=== PATIENT | male | born 1955 | race Caucasian/White ===

== ENCOUNTER 2018-01-24 18:31 | Emergency (ER) | payer MEDICARE, MEDICAID ==
[~2018-01-24 18:31] MED LIST: Ondansetron 4 MG Tab.DIS PO ONE; Sodium Chloride 0.9% 10 ML Syringe FLUSH PRN; fentaNYL 100 MCG/2 ML SDV IVPUSH ONE
[2018-01-24 18:34] VITALS: BP 119/63
--- NOTE | 2018-01-24 19:28 | EDM.PDOC ---
"Scribed by Mary Mckinney 01/24/18 1926 for Bean Castro MD ED HPI GENERAL MEDICAL PROBLEM - General Chief Complaint: Lower Extremity Injury/Pain Stated Complaint: POSS FX HIP,BY AMBULANCE Time Seen by Provider: 01/24/18 18:05 Source of Information: Reports: Patient, RN, RN Notes Reviewed History Limitations: Reports: No Limitations - History of Present Illness INITIAL COMMENTS - FREE TEXT/NARRATIVE: Patient presents to ER by [facility] with complaint of severe right hip and bony pelvis pain sustained prior to arrival from a ground level fall. Patient has MS and has balance and gait difficulties and primarily uses wheelchair for mobility. Patient also complains of neck pain, displays full range of motion. Denies any other injuries. Onset: Today Duration: Constant Location: Reports: Upper Extremity, Right Quality: Reports: Ache Severity: Severe Improves with: Reports: None Worsens with: Reports: None Associated Symptoms: Reports: No Other Symptoms Right Hip Pain Score (Numeric/FACES): 8 - Related Data Allergies Allergy/AdvReac Type Severity Reaction Status Date / Time aspirin Allergy Cough Verified 04/25/15 16:32 ketorolac tromethamine Allergy Anaphylactic Verified 04/25/15 16:32 [From Toradol] Shock Home Meds: Home Meds Acetaminophen [Tylenol] 650 mg PO DAILY 04/25/15 [History] Social & Family History - Living Situation & Occupation Living situation: Reports: Alone Occupation: Disabled Review of Systems - Review of Systems Review Of Systems: ROS reveals no pertinent complaints other than HPI. ED EXAM, GENERAL - Physical Exam Exam: See Below Exam Limited By: No Limitations General Appearance: Alert, Anxious, Mild Distress (due to pain), Obese, Other ( chronically ill appearing. ) Eye Exam: Bilateral Eye: Normal Inspection Ears: Hearing Grossly Normal Nose: Normal Inspection, Normal Mucosa, No Blood Throat/Mouth: Normal Voice, No Airway Compromise Head: Atraumatic, Normocephalic Neck: Full Range of Motion, Other (paraspinal soft tissue swelling, no bony tenderness. ) Respiratory/Chest: No Respiratory Distress, No Accessory Muscle Use, Decreased Breath Sounds Cardiovascular: Regular Rate, Rhythm GI/Abdominal: Pelvis Stable, Other (benign obese) (Male) Exam: Deferred Rectal (Males) Exam: Deferred Extremities: Pedal Edema (chronic stable), Limited Range of Motion (right hip), Other (acutely tender to palpation at right lateral hip and right anterior bony pelvis.) Neurological: Alert, Oriented, Sensory/Motor Deficit (chronic secondary to MS. No acute deficits) Psychiatric: Anxious Skin Exam: Warm, Dry, Intact Course - Vital Signs Last Recorded V/S: Last Vital Signs Temp 36.4 C 01/24/18 18:32 Pulse 84 01/24/18 18:32 Resp 16 01/24/18 18:32 BP 119/63 01/24/18 18:32 Pulse Ox 97 01/24/18 18:32 - Orders/Labs/Meds Orders: Active Orders 24 hr Category Date Time Status Peripheral IV Care [RC] . DIRECTED Care 01/24/18 18:10 Active Cervical Spine wo Cont [CT] Stat Exams 01/24/18 18:11 Taken Pelvis wo Cont [CT] Stat Exams 01/24/18 18:09 Taken COMPREHENSIVE METABOLIC PN,CMP [CHEM] Stat Lab 01/24/18 19:14 Received UA W/MICROSCOPIC [URIN] Stat Lab 01/24/18 19:06 Ordered Sodium Chloride 0.9% [Saline Flush] Med 01/24/18 18:09 Active 10 ml FLUSH ASDIRECTED PRN Peripheral IV Insertion Adult [OM.PC] Stat Oth 01/24/18 18:09 Ordered Medication Orders Sodium Chloride (Saline Flush) 10 ml FLUSH ASDIRECTED PRN PRN Reason: Keep Vein Open Last Admin: 01/24/18 18:27 Dose: 10 ml Labs: Laboratory Tests 01/24/18 Range/Units 19:14 WBC 13.0 H (5.0-10.0) 10^3/uL RBC 4.77 (4.6-6.2) 10^6/uL Hgb 14.4 (14.0-18.0) g/dL Hct 43.4 (40.0-54.0) % MCV 91.0 (80-100) fL MCH 30.2 (27.0-34.0) pg MCHC 33.2 (33.0-35.0) g/dL Plt Count 214 (150-450) 10^3/uL Neut % (Auto) 84.2 H (42.2-75.2) % Lymph % (Auto) 7.7 L (20.5-50.1) % [place] % (Auto) 5.1 (2-8) % Eos % (Auto) 2.8 (1.0-3.0) % Baso % (Auto) 0.2 (0.0-1.0) % Meds: Medications Generic Name Dose Route Start Last Admin Trade Name Freq PRN Reason Stop Dose Admin Sodium Chloride 10 ml 01/24/18 18:09 01/24/18 18:27 Saline Flush FLUSH 10 ml ASDIRECTED PRN Administration Keep Vein Open Discontinued Medications Generic Name Dose Route Start Last Admin Trade Name Freq PRN Reason Stop Dose Admin Fentanyl 50 mcg 01/24/18 18:11 01/24/18 18:27 Sublimaze IVPUSH 01/24/18 18:12 50 mcg ONETIME ONE Administration Ondansetron HCl 4 mg 01/24/18 18:11 01/24/18 18:27 Zofran Odt PO 01/24/18 18:12 4 mg ONETIME ONE Administration - Radiology Interpretation Free Text/Narrative:: CT C-spine: EXAM: CT Cervical Spine Without Intravenous Contrast CLINICAL HISTORY: 62 years old, male; Injury or trauma; Fall; Initial encounter; Blunt trauma; Patient HX: Fell today. Neck pain and right hip pain. TECHNIQUE: Axial computed tomography images of the cervical spine without intravenous contrast. All CT scans at this facility use one or more dose reduction techniques, viz.: automated exposure control; ma/kV adjustment per patient size (including targeted exams where dose is matched to indication; i.e. head); or iterative reconstruction technique. Coronal and sagittal reformatted images were created and reviewed. COMPARISON: No relevant prior studies available. FINDINGS: Vertebrae: Prominent posterior fusion of spinous processes throughout the mid to lower cervical spine. No acute fracture. Discs/spinal canal/neural foramina: No acute findings. Soft tissues: Unremarkable. Mastoid air cells: There is fluid throughout the left mastoid air cells Lung apices: Unremarkable as visualized. IMPRESSION: No acute findings. Thank you for allowing us to participate in the care of your patient. LUKE PRADHAN | Final Radiology Report CONFIDENTIALITY STATEMENT This report is intended only for use by the referring physician, and only in accordance with law. If you received this in error, call [phone]. Page 2 of 2 Dictated and Authenticated by: Berlin Sorenson MD 01/24/2018 7:16 PM Central Time ([place] & [place]) CT pelvis/hip: EXAM: CT Pelvis Without Intravenous Contrast CLINICAL HISTORY: 62 years old, male; Injury or trauma; Fall; Initial encounter; Blunt trauma ( contusions or hematomas); Right; Hip; Patient HX: Fell today. Neck pain and right hip pain. TECHNIQUE: Axial computed tomography images of the pelvis without intravenous contrast. All CT scans at this facility use one or more dose reduction techniques, viz.: automated exposure control; ma/kV adjustment per patient size (including targeted exams where dose is matched to indication; i.e. head); or iterative reconstruction technique. Coronal and sagittal reformatted images were created and reviewed. COMPARISON: No relevant prior studies available. FINDINGS: Bones/joints: There is a comminuted fracture through the right iliac bone extending into the anterior and posterior acetabulum. No dislocation. Soft tissues: Unremarkable. Bladder: Unremarkable. No stones. IMPRESSION: Extensive comminuted right iliac fracture with extensive acetabular component Thank you for allowing us to participate in the care of your patient. Dictated and Authenticated by: Berlin Sorenson MD KINZLER, FRANCIS | Final Radiology Report CONFIDENTIALITY STATEMENT This report is intended only for use by the referring physician, and only in accordance with law. If you received this in error, call [phone]. Page 2 of 2 01/24/2018 7:18 PM Central Time ([place] & [place]) CT Results Date: 01/24/18 - Re-Assessments/Exams Free Text/Narrative Re-Assessment/Exam: 01/24/18 19:[address] Morel via [employer], and he advises the pt may be transferred to an accepting hospitalist and he will consult on the case in the morning. Departure - Departure Time of Disposition: 19:24 Disposition: DC/Tfer to Acute Hospital 02 Condition: Fair Clinical Impression: Closed right acetabular fracture Qualifiers: Encounter type: initial encounter Sublocation of acetabulum: unspecified portion of acetabulum Fracture alignment: displaced Qualified Code(s): S32.401A - Unspecified fracture of right acetabulum, initial encounter for closed fracture Fall as cause of accidental injury at home as place of occurrence Qualifiers: Encounter type: initial encounter Qualified Code(s): W19.XXXA - Unspecified fall, initial encounter; Y92.009 - Unspecified place in unspecified non- institutional (private) residence as the place of occurrence of the external cause - Discharge Information Forms: ED Department Discharge, Interfacility Transfer EMTALA - My Orders Last 24 Hours: My Active Orders 01/24/18 18:09 Pelvis wo Cont [CT] Stat Sodium Chloride 0.9% [Saline Flush] 10 ml FLUSH ASDIRECTED PRN Peripheral IV Insertion Adult [OM.PC] Stat 01/24/18 18:10 Peripheral IV Care [RC] . DIRECTED 01/24/18 18:11 Cervical Spine wo Cont [CT] Stat 01/24/18 19:06 UA W/MICROSCOPIC [URIN] Stat 01/24/18 19:14 COMPREHENSIVE METABOLIC PN,CMP [CHEM] Stat - Assessment/Plan Last 24 Hours: My Active Orders 01/24/18 18:09 Pelvis wo Cont [CT] Stat Sodium Chloride 0.9% [Saline Flush] 10 ml FLUSH ASDIRECTED PRN Peripheral IV Insertion Adult [OM.PC] Stat 01/24/18 18:10 Peripheral IV Care [RC] . DIRECTED 01/24/18 18:11 Cervical Spine wo Cont [CT] Stat 01/24/18 19:06 UA W/MICROSCOPIC [URIN] Stat 01/24/18 19:14 COMPREHENSIVE METABOLIC PN,CMP [CHEM] Stat I have read and agree with the documentation that has been completed regarding this visit. By signing this record, I attest that the documentation was completed in my physical presence and is an accurate record of the encounter."
[2018-01-24 19:45] LABS: CHLORIDE,CL 103 mmol/L (101-111); SODIUM,NA 138 mmol/L (135-145)
== END 2018-01-24 20:24 ==
LOC: DL.ED 18:31
DX: S32.401A Unspecified fracture of right acetabulum, initial encounter for closed fracture (principal); S32.301A Unspecified fracture of right ilium, initial encounter for closed fracture; Z88.6 Allergy status to analgesic agent; Z79.899 Other long term (current) drug therapy; W19.XXXA Unspecified fall, initial encounter
CPT/HCPCS: 36415; 72125; 72192; 80053; 85025; 96374; 99285; A9270; J3010; J7050

== ENCOUNTER 2019-12-03 19:27 | Observation (INO) | payer MEDICARE, MEDICAID ==
--- NOTE | 2019-12-03 19:39 | EDM.PDOC ---
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 EMS arrived pt didn't fall but lowered himself down and helped pt onto gurney. Right Knee Pain Score (Numeric/FACES): 4 - Related Data Allergies Allergy/AdvReac Type Severity Reaction Status Date / Time aspirin Allergy Cough Verified 01/24/18 20:06 ketorolac tromethamine Allergy Anaphylactic Verified 01/24/18 20:06 [From Toradol] Shock Home Meds: Home Meds Acetaminophen [Tylenol] 650 mg PO DAILY 04/25/15 [History] Past Medical History Neurological History: Reports: MS Dermatologic History: Reports: Psoriasis Social & Family History - Living Situation & Occupation Living situation: Reports: Alone Occupation: Disabled Review of Systems - Review of Systems Review Of Systems: Comprehensive ROS is negative, except as noted in HPI. ED EXAM, GENERAL - Physical Exam Exam: See Below Exam Limited By: No Limitations General Appearance: Alert, WD/WN, Mild Distress, Other (discomfort) Ears: Hearing Grossly Normal Throat/Mouth: Normal Voice, No Airway Compromise Head: Atraumatic Neck: Non-Tender, Full Range of Motion Respiratory/Chest: No Respiratory Distress Cardiovascular: Regular Rate, Rhythm GI/Abdominal: Soft, Non-Tender Extremities: Other (right knee tender R/P, ) Neurological: Alert, Oriented, Normal Cognition, Other (MS pt) Psychiatric: Flat Affect Skin Exam: Warm, Dry, Normal Color Lymphatic: No Adenopathy Course - Vital Signs Last Recorded V/S: Last Vital Signs Temp 36.3 C 12/03/19 19:27 Pulse 69 12/03/19 19:27 Resp 18 12/03/19 19:27 BP 112/66 12/03/19 19:27 Pulse Ox 98 12/03/19 19:27 - Orders/Labs/Meds Meds: Medications Discontinued Medications Generic Name Dose Route Start Last Admin Trade Name Freq PRN Reason Stop Dose Admin Morphine Sulfate 2 mg 12/03/19 19:58 12/03/19 20:11 Morphine IVPUSH 12/03/19 19:59 2 mg ONETIME ONE Administration Ondansetron HCl 4 mg 12/03/19 19:58 12/03/19 20:10 Zofran IVPUSH 12/03/19 19:59 4 mg ONETIME ONE Administration - Re-Assessments/Exams Free Text/Narrative Re-Assessment/Exam: 12/03/19 20:[address] Adriel PLATA ortho who rec knee immobilizer for non weight bearing MS pt. 12/03/19 20:[address] Nova who kindly admitted pt to observation Departure - Departure Time of Disposition: 20:14 Disposition: Refer to Observation Condition: Good Clinical Impression: Femoral shaft fracture Qualifiers: Encounter type: initial encounter Fracture type: closed Fracture morphology: transverse Fracture alignment: nondisplaced Laterality: right Qualified Code(s) : S72.324A - Nondisplaced transverse fracture of shaft of right femur, initial encounter for closed fracture - Discharge Information Forms: ED Department Discharge Sepsis Event Note - Evaluation Sepsis Screening Result: No Definite Risk - Focused Exam Vital Signs: Vital Signs Temp Pulse Resp BP Pulse Ox 12/03/19 19:27 36.3 C 69 18 112/66 98 Date Exam was Performed: 12/03/19 Time Exam was Performed: 20:14
[2019-12-03] MEDS ORDERED: Ondansetron 4 MG/2 ML SDV IVPUSH ONE (19:58)
[2019-12-03] MEDS ORDERED: Morphine 2 MG/ML SYRINGE IVPUSH ONE (19:58)
[2019-12-03] MEDS ORDERED: Docusate Sodium 100 MG Cap PO PRN (20:57)
[2019-12-03] MEDS ORDERED: Ondansetron 4 MG/2 ML SDV IVPUSH PRN (20:57)
[2019-12-03] MEDS ORDERED: Ondansetron 4 MG Tab.DIS PO PRN (20:57)
[2019-12-03] MEDS ORDERED: Sodium Chloride 0.9% 10 ML Syringe FLUSH PRN (20:57)
[2019-12-03] MEDS ORDERED: Acetaminophen 325 MG Tab PO PRN (20:57)
--- NOTE | 2019-12-03 21:07 | PCM.HP ---
H&P History of Present Illness - General Date of Service: 12/03/19 Admit Problem/Dx: Admission Diagnosis/Problem Admission Diagnosis/Problem Fracture of femur Source of Information: Patient History Limitations: Reports: No Limitations - History of Present Illness Initial Comments - Free Text/Narative: 64-year-old with a history of MS. Mostly wheelchair bound. Was standing up to urinate when to lower himself onto his leg. Subsequently was a developing Right knee area pain. Sharp, nonradiating, worse with movements, better with immobilization. Came to the emergency room. X-ray showed a distal right femur fracture, Emergency room physician discussed with orthopedics at [facility]. Conservative management with immobilizer was suggested. No shortness of breath, no chest pain, no fever, no sick contact. Right Knee Pain Score (Numeric/FACES): 4 - Related Data Allergies/Adverse Reactions: Allergies Allergy/AdvReac Type Severity Reaction Status Date / Time aspirin Allergy Cough Verified 12/03/19 20:29 ketorolac tromethamine Allergy Anaphylactic Verified 12/03/19 20:29 [From Toradol] Shock Home Medications: Home Meds Acetaminophen [Tylenol] 650 mg PO BID 04/25/15 [History] Past Medical History Musculoskeletal History: Reports: Fracture Neurological History: Reports: MS Dermatologic History: Reports: Psoriasis Social & Family History - Tobacco Use Smoking Status *Q: Never Smoker Second Hand Smoke Exposure: No - Recreational Drug Use Recreational Drug Use: No - Living Situation & Occupation Living situation: Reports: Alone Occupation: Disabled H&P Review of Systems - Review of Systems: Review Of Systems: See Below General: Denies: Fever, Chills Pulmonary: Denies: Shortness of Breath Cardiovascular: Reports: Edema. Denies: Chest Pain Gastrointestinal: Denies: Abdominal Pain (Chronic) Neurological: Denies: Confusion Exam - Exam Exam: See Below - Vital Signs Vital Signs: Last Vital Signs Temp 97.4 F 12/03/19 19:27 Pulse 69 12/03/19 19:27 Resp 18 12/03/19 19:27 BP 112/66 12/03/19 19:27 Pulse Ox 98 12/03/19 19:27 Weight: 220 lb 14.4 oz - Exam General: Alert, Oriented Neck: Supple Lungs: Clear to Auscultation, Normal Respiratory Effort Cardiovascular: Regular Rate, Regular Rhythm GI/Abdominal Exam: Normal Bowel Sounds, Soft, Non-Tender Extremities: Pedal Edema Skin: Warm, Other (Groin area fungal appearing erythematous rash, elbows with rash) - Problem List (1) Yeast infection of the skin SNOMED Code(s): 74465606 ICD Code: B37.2 - CANDIDIASIS OF SKIN AND NAIL Status: Acute Current Visit: Yes (2) Multiple sclerosis SNOMED Code(s): 00034039 ICD Code: G35 - MULTIPLE SCLEROSIS Status: Acute Current Visit: Yes (3) Psoriasis SNOMED Code(s): 0713071 ICD Code: L40.9 - PSORIASIS, UNSPECIFIED Status: Acute Current Visit: Yes (4) Femoral shaft fracture SNOMED Code(s): 15530725 ICD Code: S72.309A - UNSP FRACTURE OF SHAFT OF UNSP FEMUR, INIT FOR CLOS FX Status: Acute Current Visit: No Qualifiers: Encounter type: initial encounter Fracture type: closed Fracture morphology: transverse Fracture alignment: nondisplaced Laterality: right Qualified Code(s): S72.324A - Nondisplaced transverse fracture of shaft of right femur, initial encounter for closed fracture Problem List Initiated/Reviewed/Updated: Yes Orders Last 24hrs: Active Orders 24 hr Category Date Time Status Admission Diagnosis [ADT] Stat ADT 12/03/19 20:15 Ordered Admission Status [Patient Status] [ADT] Routine ADT 12/03/19 20:15 Active Ambulate [RC] PER UNIT ROUTINE Care 12/03/19 20:58 Ordered Antiembolic Devices [RC] PER UNIT ROUTINE Care 12/03/19 21:00 Ordered Oxygen Therapy [RC] PRN Care 12/03/19 20:57 Ordered Peripheral IV Care [RC] . DIRECTED Care 12/03/19 21:00 Ordered Up With Assistance [RC] ASDIRECTED Care 12/03/19 20:57 Ordered VTE/DVT Education [RC] PER UNIT ROUTINE Care 12/03/19 20:57 Ordered Vital Signs [RC] Q4H Care 12/03/19 20:57 Ordered OT Evaluation and Treatment [CONS] Routine Cons 12/03/19 21:01 Ordered PT Evaluation and Treatment [CONS] Routine Cons 12/03/19 21:01 Ordered Regular Diet [DIET] Diet 12/03/19 Breakfast Ordered Acetaminophen [Tylenol] Med 12/03/19 21:00 Ordered 650 mg PO BID Acetaminophen [Tylenol] Med 12/03/19 20:57 Ordered 650 mg PO Q4H PRN Acetaminophen/HYDROcodone [[place] 325-10 MG] Med 12/03/19 20:57 Ordered 1 tab PO Q4H PRN Docusate Sodium [Colace] Med 12/03/19 20:57 Ordered 100 mg PO BID PRN Heparin Sodium Med 12/03/19 22:00 Ordered 5,000 units SUBCUT Q8HR Morphine Med 12/03/19 20:57 Ordered 1 mg IVPUSH Q2H PRN Nystatin [Nystatin Crm] Med 12/04/19 09:00 Ordered 1 gm TOP TID Ondansetron [Zofran ODT] Med 12/03/19 20:57 Ordered 4 mg PO Q6H PRN Ondansetron [Zofran] Med 12/03/19 20:57 Ordered 4 mg IVPUSH Q4H PRN Sodium Chloride 0.9% [Saline Flush] Med 12/03/19 20:57 Ordered 10 ml FLUSH ASDIRECTED PRN Zolpidem [Ambien] Med 12/03/19 20:57 Ordered 5 mg PO BEDTIME PRN Peripheral IV Insertion Adult [OM.PC] Routine Oth 12/03/19 20:57 Ordered Saline Lock Insert [OM.PC] Routine Oth 12/03/19 20:57 Ordered Sequential Compression Device [OM.PC] Per Unit Routine Oth 12/03/19 20:59 Ordered Resuscitation Status Routine Resus Stat 12/03/19 20:57 Ordered Medication Orders Acetaminophen (Tylenol) 650 mg PO BID CASI Acetaminophen (Tylenol) 650 mg PO Q4H PRN PRN Reason: Pain (Mild 1-3)/fever Hydrocodone Bitart/Acetaminophen ([place] 325-10 Mg) 1 tab PO Q4H PRN PRN Reason: Pain (moderate 4-6) Docusate Sodium (Colace) 100 mg PO BID PRN PRN Reason: Constipation Heparin Sodium (Porcine) (Heparin Sodium) 5,000 units SUBCUT Q8HR CASI Morphine Sulfate (Morphine) 1 mg IVPUSH Q2H PRN PRN Reason: Pain (severe 7-10) Nystatin (Nystatin Crm) 1 gm TOP TID CASI Ondansetron HCl (Zofran Odt) 4 mg PO Q6H PRN PRN Reason: nausea, able to take PO Ondansetron HCl (Zofran) 4 mg IVPUSH Q4H PRN PRN Reason: Nausea/Vomiting Sodium Chloride (Saline Flush) 10 ml FLUSH ASDIRECTED PRN PRN Reason: Keep Vein Open Zolpidem Tartrate (Ambien) 5 mg PO BEDTIME PRN PRN Reason: Sleep Assessment/Plan Comment:: History of MS, mostly wheelchair-bound. Came to the emergency room. X-ray showed a distal right femur fracture, Emergency room physician discussed with orthopedics at [facility]. Conservative management with immobilizer was suggested. Will have physical and occupational therapy evaluation Pain control with Tylenol for mild pain, hydrocodone for moderate, IV morphine for severe pain Groin yeast infection Use nystatin DVT prophylaxis with SCDs and subcutaneous heparin
[2019-12-03] MEDS: Acetaminophen 325 MG Tab PO SCH (21:36)
[2019-12-03] MEDS: Heparin Sodium 5,000 Units/ML Vial SUBCUT SCH (21:37)
[2019-12-03] MEDS: Nystatin Crm 15 GM Tube TOP SCH (21:39)
[2019-12-03] MEDS: Zolpidem 5 MG Tab PO PRN (21:43)
[2019-12-04] MEDS: Heparin Sodium 5,000 Units/ML Vial SUBCUT SCH ×4 (05:51→21:01)
[2019-12-04] MEDS: Acetaminophen 325 MG Tab PO SCH ×2 (09:12→20:49)
[2019-12-04] MEDS: Morphine 2 MG/ML SYRINGE IVPUSH PRN (09:15)
--- NOTE | 2019-12-04 10:48 | PCM.PN ---
- General Info Date of Service: 12/04/19 Subjective Update: Continues to have moderate to severe pain with activity and changing position of the right leg. Has practically no pain when not moving or touching the right leg. No associated fever, chills, shortness of breath. Functional Status: Reports: Tolerating Diet - Review of Systems Pulmonary: Denies: Shortness of Breath Cardiovascular: Denies: Chest Pain Gastrointestinal: Denies: Abdominal Pain Genitourinary: Denies: Dysuria - Patient Data Vitals - Most Recent: Last Vital Signs Temp 98.9 F 12/04/19 08:00 Pulse 48 L 12/04/19 08:00 Resp 18 12/04/19 08:00 BP 133/86 12/04/19 08:00 Pulse Ox 95 12/04/19 08:00 Weight - Most Recent: 220 lb 14.4 oz I&O - Last 24 Hours: Intake & Output 12/03/19 12/04/19 12/04/19 22:59 06:59 14:59 Intake Total 100 Output Total 200 Balance -100 Med Orders - Current: Current Medications Acetaminophen (Tylenol) 650 mg PO BID [facility] Last Admin: 12/04/19 09:12 Dose: 650 mg Acetaminophen (Tylenol) 650 mg PO Q4H PRN PRN Reason: Pain (Mild 1-3)/fever Hydrocodone Bitart/Acetaminophen ([place] 325-10 Mg) 1 tab PO Q4H PRN PRN Reason: Pain (moderate 4-6) Docusate Sodium (Colace) 100 mg PO BID PRN PRN Reason: Constipation Heparin Sodium (Porcine) (Heparin Sodium) 5,000 units SUBCUT Q8HR [facility] Last Admin: 12/04/19 05:51 Dose: 5,000 units Morphine Sulfate (Morphine) 1 mg IVPUSH Q2H PRN PRN Reason: Pain (severe 7-10) Last Admin: 12/04/19 09:15 Dose: 1 mg Nystatin (Nystatin Crm) 0 gm TOP TID [facility] Last Admin: 12/03/19 21:39 Dose: 1 applic Ondansetron HCl (Zofran Odt) 4 mg PO Q6H PRN PRN Reason: nausea, able to take PO Ondansetron HCl (Zofran) 4 mg IVPUSH Q4H PRN PRN Reason: Nausea/Vomiting Sodium Chloride (Saline Flush) 10 ml FLUSH ASDIRECTED PRN PRN Reason: Keep Vein Open Last Admin: 12/04/19 09:15 Dose: 10 ml Zolpidem Tartrate (Ambien) 5 mg PO BEDTIME PRN PRN Reason: Sleep Last Admin: 12/03/19 21:43 Dose: 5 mg Discontinued Medications Morphine Sulfate (Morphine) 2 mg IVPUSH ONETIME ONE Stop: 12/03/19 19:59 Last Admin: 12/03/19 20:11 Dose: 2 mg Ondansetron HCl (Zofran) 4 mg IVPUSH ONETIME ONE Stop: 12/03/19 19:59 Last Admin: 12/03/19 20:10 Dose: 4 mg - Exam General: Alert, Oriented Neck: Supple Lungs: Clear to Auscultation, Normal Respiratory Effort Cardiovascular: Regular Rate, Regular Rhythm GI/Abdominal Exam: Normal Bowel Sounds, Soft, Non-Tender Extremities: Pedal Edema, Other (Right lower extremity in immobilizer) Neurological: Other (Generalized weakness) Sepsis Event Note - Evaluation Sepsis Screening Result: No Definite Risk - Focused Exam Vital Signs: Vital Signs Temp Pulse Resp BP Pulse Ox 12/04/19 08:00 98.9 F 48 L 18 133/86 95 Date Exam was Performed: 12/04/19 Time Exam was Performed: 10:46 - Problem List & Annotations (1) Yeast infection of the skin SNOMED Code(s): 18261422 Code(s): B37.2 - CANDIDIASIS OF SKIN AND NAIL Status: Acute Current Visit : Yes (2) Multiple sclerosis SNOMED Code(s): 75417037 Code(s): G35 - MULTIPLE SCLEROSIS Status: Acute Current Visit: Yes (3) Psoriasis SNOMED Code(s): 4708374 Code(s): L40.9 - PSORIASIS, UNSPECIFIED Status: Acute Current Visit: Yes (4) Femoral shaft fracture SNOMED Code(s): 40030037 Code(s): S72.309A - UNSP FRACTURE OF SHAFT OF UNSP FEMUR, INIT FOR CLOS FX Status: Acute Current Visit: No Qualifiers: Encounter type: initial encounter Fracture type: closed Fracture morphology: transverse Fracture alignment: nondisplaced Laterality: right Qualified Code(s): S72.324A - Nondisplaced transverse fracture of shaft of right femur, initial encounter for closed fracture - Problem List Review Problem List Initiated/Reviewed/Updated: Yes - My Orders Last 24 Hours: My Active Orders 12/03/19 20:57 Oxygen Therapy [RC] PRN Up With Assistance [RC] ASDIRECTED VTE/DVT Education [RC] PER UNIT ROUTINE Vital Signs [RC] Q4H Acetaminophen [Tylenol] 650 mg PO Q4H PRN Acetaminophen/HYDROcodone [[place] 325-10 MG] 1 tab PO Q4H PRN Docusate Sodium [Colace] 100 mg PO BID PRN Morphine 1 mg IVPUSH Q2H PRN Ondansetron [Zofran ODT] 4 mg PO Q6H PRN Ondansetron [Zofran] 4 mg IVPUSH Q4H PRN Sodium Chloride 0.9% [Saline Flush] 10 ml FLUSH ASDIRECTED PRN Zolpidem [Ambien] 5 mg PO BEDTIME PRN Peripheral IV Insertion Adult [OM.PC] Routine Saline Lock Insert [OM.PC] Routine Resuscitation Status Routine 12/03/19 20:58 Ambulate [RC] PER UNIT ROUTINE 12/03/19 20:59 Sequential Compression Device [OM.PC] Per Unit Routine 12/03/19 21:00 Antiembolic Devices [RC] PER UNIT ROUTINE Peripheral IV Care [RC] ,21 Acetaminophen [Tylenol] 650 mg PO BID 12/03/19 21:01 OT Evaluation and Treatment [CONS] Routine PT Evaluation and Treatment [CONS] Routine 12/03/19 21:15 Nystatin [Nystatin Crm] 0 gm TOP TID 12/03/19 22:00 Heparin Sodium 5,000 units SUBCUT Q8HR 12/05/19 05:15 BASIC METABOLIC PANEL,BMP [CHEM] AM CBC WITH AUTO DIFF [HEME] AM - Plan Plan:: History of MS, mostly wheelchair-bound. Came to the emergency room. X-ray showed a distal right femur fracture, Emergency room physician discussed with orthopedics at [facility]. Conservative management with immobilizer was suggested. Continue with physical and occupational therapy evaluation and treatment Pain control with Tylenol for mild pain, hydrocodone for moderate, IV morphine for severe pain Groin yeast infection Use nystatin DVT prophylaxis with SCDs and subcutaneous heparin
[2019-12-04] MEDS: Nystatin Crm 15 GM Tube TOP SCH ×2 (11:17→14:58)
[2019-12-04] MEDS: Nystatin Topical Powder 30 GM Bottle TOP SCH (20:45)
[2019-12-04] MEDS: Zolpidem 5 MG Tab PO PRN (20:47)
[2019-12-04] MEDS: Acetaminophen/HYDROcodone 325-10 MG Tab PO PRN (20:48)
[2019-12-05] MEDS: Heparin Sodium 5,000 Units/ML Vial SUBCUT SCH ×3 (05:52→21:07)
[2019-12-05 06:55] LABS: CHLORIDE,CL 104 mmol/L (98-107); SODIUM,NA 142 mmol/L (136-145)
[2019-12-05] MEDS: Acetaminophen 325 MG Tab PO SCH ×2 (08:13→21:07)
--- NOTE | 2019-12-05 10:24 | PCM.PN ---
- General Info Date of Service: 12/05/19 Admission Dx/Problem (Free Text): Admission Diagnosis/Problem Admission Diagnosis/Problem Fracture of femur Subjective Update: Continues to have moderate to severe pain with activity and changing position of the right leg. Has practically no pain when not moving or touching the right leg.No associated fever, chills, shortness of breath. He gets spasm of the right leg and some time it is very severe Functional Status: Reports: Pain Controlled, Tolerating Diet, Urinating - Review of Systems General: Reports: Weakness, Appetite (acceptable). Denies: Fever, Chills, Night Sweats HEENT: Denies: Dysphasia, Eye Pain, Headaches, Sinus Congestion, Sore Throat, Visual Changes Pulmonary: Denies: Shortness of Breath, Cough, Sputum, Wheezing Cardiovascular: Denies: Chest Pain, Edema Gastrointestinal: Denies: Abdominal Pain, Constipation, Difficulty Swallowing, Nausea, Vomiting Genitourinary: Denies: Dysuria, Urgency, Flank Pain Musculoskeletal: Denies: Neck Pain, Shoulder Pain, Leg Pain (right), Joint Swelling Skin: Denies: Cyanosis, Jaundice, Bruising, Pruritis, Rash Neurological: Reports: Weakness. Denies: Confusion, Headache, Numbness, Tremors Psychiatric: Denies: Confusion, Anxiety, Agitation - Patient Data Vitals - Most Recent: Last Vital Signs Temp 36.6 C 12/05/19 08:00 Pulse 84 12/05/19 08:00 Resp 20 12/05/19 08:00 BP 111/68 12/05/19 08:00 Pulse Ox 95 12/05/19 08:00 Weight - Most Recent: 100.199 kg I&O - Last 24 Hours: Intake & Output 12/04/19 12/05/19 12/05/19 22:59 06:59 14:59 Intake Total 500 Output Total 675 300 Balance -175 -300 Lab Results Last 24 Hours: Laboratory Results - last 24 hr 12/05/19 12/05/19 Range/Units 05:55 05:55 WBC 8.0 (5.0-10.0) 10^3/uL RBC 4.36 L (4.6-6.2) 10^6/uL Hgb 13.0 L (14.0-18.0) g/dL Hct 40.1 (40.0-54.0) % MCV 92.0 (80-100) fL MCH 29.8 (27.0-34.0) pg MCHC 32.4 L (33.0-35.0) g/dL Plt Count 267 (150-450) 10^3/uL Neut % (Auto) 68.0 (42.2-75.2) % Lymph % (Auto) 18.3 L (20.5-50.1) % [place] % (Auto) 10.3 H (2-8) % Eos % (Auto) 3.3 H (1.0-3.0) % Baso % (Auto) 0.1 (0.0-1.0) % Sodium 142 (136-145) mmol/L Potassium 4.0 (3.5-5.1) mmol/L Chloride 104 (98-107) mmol/L Carbon Dioxide 29 (21-32) mmol/L Anion Gap 13.0 (7-13) mEq/L BUN 19 H (7-18) mg/dL Creatinine 1.05 (0.70-1.30) mg/dL Est Cr Clr Drug Dosing 93.09 mL/min Estimated GFR (MDRD) > 60 Glucose 100 H (74-99) mg/dL Calcium 8.2 L (8.5-10.1) mg/dL Med Orders - Current: Current Medications Acetaminophen (Tylenol) 650 mg PO BID [facility] Last Admin: 12/05/19 08:13 Dose: 650 mg Acetaminophen (Tylenol) 650 mg PO Q4H PRN PRN Reason: Pain (Mild 1-3)/fever Hydrocodone Bitart/Acetaminophen ([place] 325-10 Mg) 1 tab PO Q4H PRN PRN Reason: Pain (moderate 4-6) Last Admin: 12/04/19 20:48 Dose: 1 tab Cyclobenzaprine HCl (Flexeril) 5 mg PO DAILY [facility] Docusate Sodium (Colace) 100 mg PO BID PRN PRN Reason: Constipation Heparin Sodium (Porcine) (Heparin Sodium) 5,000 units SUBCUT Q8HR [facility] Last Admin: 12/05/19 05:52 Dose: 5,000 units Morphine Sulfate (Morphine) 1 mg IVPUSH Q2H PRN PRN Reason: Pain (severe 7-10) Last Admin: 12/04/19 09:15 Dose: 1 mg Nystatin (Nystop) 0 gm TOP TID [facility] Last Admin: 12/04/19 20:45 Dose: 1 applic Ondansetron HCl (Zofran Odt) 4 mg PO Q6H PRN PRN Reason: nausea, able to take PO Ondansetron HCl (Zofran) 4 mg IVPUSH Q4H PRN PRN Reason: Nausea/Vomiting Sodium Chloride (Saline Flush) 10 ml FLUSH ASDIRECTED PRN PRN Reason: Keep Vein Open Last Admin: 12/04/19 09:15 Dose: 10 ml Zolpidem Tartrate (Ambien) 5 mg PO BEDTIME PRN PRN Reason: Sleep Last Admin: 12/04/19 20:47 Dose: 5 mg Discontinued Medications Morphine Sulfate (Morphine) 2 mg IVPUSH ONETIME ONE Stop: 12/03/19 19:59 Last Admin: 12/03/19 20:11 Dose: 2 mg Nystatin (Nystatin Crm) 0 gm TOP TID [facility] Last Admin: 12/04/19 14:58 Dose: 1 applic Ondansetron HCl (Zofran) 4 mg IVPUSH ONETIME ONE Stop: 12/03/19 19:59 Last Admin: 12/03/19 20:10 Dose: 4 mg - Exam Quality Assessment: DVT Prophylaxis. No: Supplemental Oxygen, Urine Catheter General: Alert, Oriented, Cooperative, No Acute Distress HEENT: Pupils Equal, Pupils Reactive, Mucous Membr. Moist/[place] Neck: Supple, No JVD, No Thyromegaly. No: Lymphadenopathy Lungs: Clear to Auscultation, Normal Respiratory Effort. No: Crackles, Wheezing Cardiovascular: Regular Rate, Regular Rhythm, Murmurs GI/Abdominal Exam: Normal Bowel Sounds, Soft, Non-Tender. No: Rigid, Rebound (Male) Exam: Deferred Back Exam: Normal Inspection Extremities: Normal Inspection, No Pedal Edema, Leg Pain (Rt LE with touch and any movement ) Skin: Warm, Dry, Intact Neurological: Normal Speech, Sensation Intact Psy/Mental Status: Alert, Normal Affect, Normal Mood Sepsis Event Note - Evaluation Sepsis Screening Result: No Definite Risk - Focused Exam Vital Signs: Vital Signs Temp Pulse Resp BP Pulse Ox 12/05/19 08:00 36.6 C 84 20 111/68 95 Date Exam was Performed: 12/05/19 Time Exam was Performed: 10:18 - Problem List Review Problem List Initiated/Reviewed/Updated: Yes - My Orders Last 24 Hours: My Active Orders 12/04/19 21:00 Nystatin [Nystop] 0 gm TOP TID 12/06/19 09:00 Cyclobenzaprine [Flexeril] 5 mg PO DAILY - Plan Plan:: 64-year-old with a history of MS. Mostly wheelchair bound. He Was standing up to urinate when he lowered himself onto his leg, developed Right knee area sharp pain, nonradiating, worse with movements, better with immobilization. Came to the emergency room. X-ray showed a distal right femur fracture, Emergency room physician discussed with orthopedics at . Conservative management with immobilizer was suggested. No shortness of breath, no chest pain, no fever, no sick contact. Impression and Plan 1. Distal Right Femur Fracture: Continue conservative management, Continue with physical and occupational therapy evaluation and treatment Pain control with Tylenol for mild pain, hydrocodone for moderate, IV morphine for severe pain for muscle spasm will start with flexeril 5 mg daily PRN 2. Groin yeast infection Use nystatin powder 3. DVT prophylaxis with SCDs and subcutaneous heparin Disposition: Will need NH placement
[2019-12-05] MEDS: Nystatin Topical Powder 30 GM Bottle TOP SCH ×3 (11:00→21:08)
[2019-12-05] MEDS: Acetaminophen/HYDROcodone 325-10 MG Tab PO PRN (13:25)
[2019-12-05] MEDS: Zolpidem 5 MG Tab PO PRN (21:07)
[2019-12-06] MEDS: Heparin Sodium 5,000 Units/ML Vial SUBCUT SCH ×3 (05:08→21:23)
[2019-12-06] MEDS: Acetaminophen 325 MG Tab PO SCH ×2 (08:36→21:22)
[2019-12-06] MEDS: Nystatin Topical Powder 30 GM Bottle TOP SCH ×3 (08:37→21:23)
[2019-12-06] MEDS: Cyclobenzaprine 10 MG Tab PO SCH (08:37)
--- NOTE | 2019-12-06 11:46 | PCM.PN ---
- General Info Date of Service: 12/06/19 Admission Dx/Problem (Free Text): Admission Diagnosis/Problem Admission Diagnosis/Problem Fracture of femur Subjective Update: Today he was seen in room, Continues to have moderate to severe pain with activity and changing position of the right leg. Has practically no pain when not moving or touching the right leg.No associated fever, chills, shortness of breath. He gets spasm of the right leg and some time it is very severe but after staring flexeril it is much better Functional Status: Reports: Pain Controlled, Tolerating Diet - Review of Systems General: Reports: Weakness, Appetite (acceptable). Denies: Fever, Chills HEENT: Denies: Headaches, Sinus Congestion, Sore Throat, Visual Changes Pulmonary: Denies: Shortness of Breath, Cough, Sputum, Wheezing Cardiovascular: Denies: Chest Pain, Lightheadedness Gastrointestinal: Denies: Abdominal Pain, Diarrhea, Difficulty Swallowing, Nausea, Vomiting Genitourinary: Denies: Dysuria, Burning, Urgency, Flank Pain Musculoskeletal: Reports: Leg Pain (Right hip area). Denies: Neck Pain Skin: Denies: Cyanosis, Jaundice, Bruising, Pruritis, Rash Neurological: Denies: Confusion, Tingling, Tremors Psychiatric: Denies: No Symptoms - Patient Data Vitals - Most Recent: Last Vital Signs Temp 37.2 C 12/06/19 08:00 Pulse 87 12/06/19 08:00 Resp 18 12/06/19 08:00 BP 121/62 12/06/19 08:00 Pulse Ox 95 12/06/19 08:00 Weight - Most Recent: 100.199 kg I&O - Last 24 Hours: Intake & Output 12/05/19 12/06/19 12/06/19 22:59 06:59 14:59 Intake Total 460 200 460 Balance 460 200 460 Med Orders - Current: Current Medications Acetaminophen (Tylenol) 650 mg PO BID [facility] Last Admin: 12/06/19 08:36 Dose: 650 mg Acetaminophen (Tylenol) 650 mg PO Q4H PRN PRN Reason: Pain (Mild 1-3)/fever Hydrocodone Bitart/Acetaminophen ([place] 325-10 Mg) 1 tab PO Q4H PRN PRN Reason: Pain (moderate 4-6) Last Admin: 12/05/19 13:25 Dose: 1 tab Cyclobenzaprine HCl (Flexeril) 5 mg PO DAILY [facility] Last Admin: 12/06/19 08:37 Dose: 5 mg Docusate Sodium (Colace) 100 mg PO BID PRN PRN Reason: Constipation Heparin Sodium (Porcine) (Heparin Sodium) 5,000 units SUBCUT Q8HR [facility] Last Admin: 12/06/19 05:08 Dose: 5,000 units Morphine Sulfate (Morphine) 1 mg IVPUSH Q2H PRN PRN Reason: Pain (severe 7-10) Last Admin: 12/04/19 09:15 Dose: 1 mg Nystatin (Nystop) 0 gm TOP TID [facility] Last Admin: 12/06/19 08:37 Dose: 1 applic Ondansetron HCl (Zofran Odt) 4 mg PO Q6H PRN PRN Reason: nausea, able to take PO Ondansetron HCl (Zofran) 4 mg IVPUSH Q4H PRN PRN Reason: Nausea/Vomiting Sodium Chloride (Saline Flush) 10 ml FLUSH ASDIRECTED PRN PRN Reason: Keep Vein Open Last Admin: 12/04/19 09:15 Dose: 10 ml Zolpidem Tartrate (Ambien) 5 mg PO BEDTIME PRN PRN Reason: Sleep Last Admin: 12/05/19 21:07 Dose: 5 mg Discontinued Medications Morphine Sulfate (Morphine) 2 mg IVPUSH ONETIME ONE Stop: 12/03/19 19:59 Last Admin: 12/03/19 20:11 Dose: 2 mg Nystatin (Nystatin Crm) 0 gm TOP TID [facility] Last Admin: 12/04/19 14:58 Dose: 1 applic Ondansetron HCl (Zofran) 4 mg IVPUSH ONETIME ONE Stop: 12/03/19 19:59 Last Admin: 12/03/19 20:10 Dose: 4 mg - Exam Quality Assessment: DVT Prophylaxis. No: Supplemental Oxygen, Urine Catheter General: Alert, Oriented, Cooperative, No Acute Distress HEENT: Pupils Equal, EOMI, Mucous Membr. Moist/[place] Neck: Supple, No JVD, No Thyromegaly. No: Lymphadenopathy Lungs: Clear to Auscultation, Normal Respiratory Effort Cardiovascular: Regular Rate, Regular Rhythm, Murmurs GI/Abdominal Exam: Normal Bowel Sounds, Soft, Non-Tender, No Organomegaly. No: Rigid, Rebound (Male) Exam: Deferred Back Exam: Normal Inspection Extremities: Normal Inspection, No Pedal Edema Skin: Warm, Dry, Intact Neurological: No New Focal Deficit Psy/Mental Status: Alert, Normal Affect, Normal Mood Sepsis Event Note - Evaluation Sepsis Screening Result: No Definite Risk - Focused Exam Vital Signs: Vital Signs Temp Pulse Resp BP Pulse Ox 12/06/19 08:00 37.2 C 87 18 121/62 95 Date Exam was Performed: 12/06/19 Time Exam was Performed: 11:45 - Problem List Review Problem List Initiated/Reviewed/Updated: Yes - My Orders Last 24 Hours: My Active Orders 12/06/19 09:00 Cyclobenzaprine [Flexeril] 5 mg PO DAILY - Plan Plan:: 64-year-old with a history of MS. Mostly wheelchair bound. He Was standing up to urinate when he lowered himself onto his leg, developed Right knee area sharp pain, nonradiating, worse with movements, better with immobilization. Came to the emergency room. X-ray showed a distal right femur fracture, Emergency room physician discussed with orthopedics at . Conservative management with immobilizer was suggested. No shortness of breath, no chest pain, no fever, no sick contact. Impression and Plan 1. Distal Right Femur Fracture: Continue conservative management, Continue with physical and occupational therapy evaluation and treatment Pain control with Tylenol for mild pain, hydrocodone for moderate, IV morphine for severe pain for muscle spasm will continue flexeril 5 mg daily PRN and he feels better with flexeil 2. Groin yeast infection Use nystatin powder 3. DVT prophylaxis with SCDs and subcutaneous heparin Disposition: Will need NH placement
[2019-12-06] MEDS: Morphine 2 MG/ML SYRINGE IVPUSH PRN (14:14)
[2019-12-06] MEDS: Zolpidem 5 MG Tab PO PRN (21:23)
[2019-12-07] MEDS: Heparin Sodium 5,000 Units/ML Vial SUBCUT SCH (05:15)
[2019-12-07] MEDS: Nystatin Topical Powder 30 GM Bottle TOP SCH (09:00)
[2019-12-07] MEDS: Acetaminophen 325 MG Tab PO SCH (09:28)
[2019-12-07] MEDS: Cyclobenzaprine 10 MG Tab PO SCH (09:31)
--- NOTE | 2019-12-07 10:43 | PCM.DCSUM1 ---
Discharge Summary - Hospital Course Free Text/Narrative:: 64-year-old with a history of MS. Mostly wheelchair bound. He Was standing up to urinate when he lowered himself onto his leg, developed Right knee area sharp pain, nonradiating, worse with movements, better with immobilization. Came to the emergency room. X-ray showed a distal right femur fracture, Emergency room physician discussed with orthopedics at [facility]. Conservative management with immobilizer was suggested. 1. Distal Right Femur Fracture: Continue conservative management, Continue with physical and occupational therapy evaluation and treatment Pain control with Tylenol for mild pain, hydrocodone for moderate or severe pain for muscle spasm will continue flexeril 5 mg daily PRN 2. Groin yeast infection Use nystatin powder Diagnosis: Stroke: No - Discharge Data Discharge Date: 12/07/19 Discharge Disposition: DC/Tfer to SNF 03 Condition: Stable - Referral to Home Health Primary Care Physician: PCP None - Discharge Diagnosis/Problem(s) (1) Yeast infection of the skin SNOMED Code(s): 20460911 ICD Code: B37.2 - CANDIDIASIS OF SKIN AND NAIL Status: Acute Current Visit: Yes (2) Multiple sclerosis SNOMED Code(s): 57491555 ICD Code: G35 - MULTIPLE SCLEROSIS Status: Acute Current Visit: Yes (3) Psoriasis SNOMED Code(s): 3611889 ICD Code: L40.9 - PSORIASIS, UNSPECIFIED Status: Acute Current Visit: Yes (4) Femoral shaft fracture SNOMED Code(s): 79698836 ICD Code: S72.309A - UNSP FRACTURE OF SHAFT OF UNSP FEMUR, INIT FOR CLOS FX Status: Acute Current Visit: No Qualifiers: Encounter type: initial encounter Fracture type: closed Fracture morphology: transverse Fracture alignment: nondisplaced Laterality: right Qualified Code(s): S72.324A - Nondisplaced transverse fracture of shaft of right femur, initial encounter for closed fracture - Patient Summary/Data Consults: Consultations 12/03/19 21:01 OT Evaluation and Treatment [CONS] Routine PT Evaluation and Treatment [CONS] Routine - Patient Instructions Diet: Usual Diet as Tolerated Activity: As Tolerated - Discharge Plan *PRESCRIPTION DRUG MONITORING PROGRAM REVIEWED*: Not Applicable *COPY OF PRESCRIPTION DRUG MONITORING REPORT IN PATIENT TELLY: Not Applicable Prescriptions/Med Rec: Acetaminophen/HYDROcodone [[place] 325-10 MG] 1 tab PO Q4H PRN #22 tablet PRN Reason: Pain (Moderate 4-6) Cyclobenzaprine [Flexeril] 5 mg PO DAILY #30 tablet Nystatin [Nystop] 1 gm TOP TID #1 bottle Home Medications: Home Meds Acetaminophen [Tylenol] 650 mg PO BID 04/25/15 [History] Acetaminophen [Tylenol] 650 mg PO Q4H PRN tablet 12/07/19 [Rx] Acetaminophen/HYDROcodone [[place] 325-10 MG] 1 tab PO Q4H PRN #22 tablet [Rx] Cyclobenzaprine [Flexeril] 5 mg PO DAILY #30 tablet 12/07/19 [Rx] Docusate Sodium [Colace] 100 mg PO BID PRN cap 12/07/19 [Rx] Nystatin [Nystop] 1 gm TOP TID #1 bottle 12/07/19 [Rx] Oxygen Therapy Mode: Room Air Forms: ED Department Discharge Referrals: Johnnie Morel, DO [Ordering Only Provider] - (in 2 weeks) PCP,Unobtain [Ordering Only Provider] - (in 2-3 days) - Discharge Summary/Plan Comment DC Time >30 min.: No - General Info Date of Service: 12/07/19 Functional Status: Reports: Pain Controlled - Review of Systems General: Denies: Fever Pulmonary: Denies: Shortness of Breath Cardiovascular: Denies: Chest Pain, Edema - Patient Data Vitals - Most Recent: Last Vital Signs Temp 98.8 F 12/07/19 07:25 Pulse 83 12/07/19 07:25 Resp 18 12/07/19 07:25 BP 126/61 12/07/19 07:25 Pulse Ox 95 12/07/19 07:25 Weight - Most Recent: 220 lb 14.4 oz I&O - Last 24 hours: Intake & Output 12/06/19 12/07/19 12/07/19 22:59 06:59 14:59 Intake Total 240 250 Balance 240 250 Med Orders - Current: Current Medications Acetaminophen (Tylenol) 650 mg PO BID [facility] Last Admin: 12/07/19 09:28 Dose: 650 mg Acetaminophen (Tylenol) 650 mg PO Q4H PRN PRN Reason: Pain (Mild 1-3)/fever Hydrocodone Bitart/Acetaminophen ([place] 325-10 Mg) 1 tab PO Q4H PRN PRN Reason: Pain (moderate 4-6) Last Admin: 12/05/19 13:25 Dose: 1 tab Cyclobenzaprine HCl (Flexeril) 5 mg PO DAILY [facility] Last Admin: 12/07/19 09:31 Dose: 5 mg Docusate Sodium (Colace) 100 mg PO BID PRN PRN Reason: Constipation Heparin Sodium (Porcine) (Heparin Sodium) 5,000 units SUBCUT Q8HR [facility] Last Admin: 12/07/19 05:15 Dose: 5,000 units Morphine Sulfate (Morphine) 1 mg IVPUSH Q2H PRN PRN Reason: Pain (severe 7-10) Last Admin: 12/06/19 14:14 Dose: 1 mg Nystatin (Nystop) 0 gm TOP TID [facility] Last Admin: 12/06/19 21:23 Dose: 1 applic Ondansetron HCl (Zofran Odt) 4 mg PO Q6H PRN PRN Reason: nausea, able to take PO Ondansetron HCl (Zofran) 4 mg IVPUSH Q4H PRN PRN Reason: Nausea/Vomiting Sodium Chloride (Saline Flush) 10 ml FLUSH ASDIRECTED PRN PRN Reason: Keep Vein Open Last Admin: 12/04/19 09:15 Dose: 10 ml Zolpidem Tartrate (Ambien) 5 mg PO BEDTIME PRN PRN Reason: Sleep Last Admin: 12/06/19 21:23 Dose: 5 mg Discontinued Medications Morphine Sulfate (Morphine) 2 mg IVPUSH ONETIME ONE Stop: 12/03/19 19:59 Last Admin: 12/03/19 20:11 Dose: 2 mg Nystatin (Nystatin Crm) 0 gm TOP TID [facility] Last Admin: 12/04/19 14:58 Dose: 1 applic Ondansetron HCl (Zofran) 4 mg IVPUSH ONETIME ONE Stop: 12/03/19 19:59 Last Admin: 12/03/19 20:10 Dose: 4 mg - Exam General: Reports: Alert, Oriented Neck: Reports: Supple Lungs: Reports: Clear to Auscultation, Normal Respiratory Effort Cardiovascular: Reports: Regular Rate, Regular Rhythm Extremities: Normal Inspection (r. leg immobilizer), No Pedal Edema Skin: Reports: Warm, Dry, Other (psoriatic patches ) Neurological: Reports: No New Focal Deficit Psy/Mental Status: Reports: Alert, Normal Affect, Normal Mood
[2019-12-07 11:28] VITALS: BP 135/73; PULSE 94
[2019-12-07] MEDS: Acetaminophen/HYDROcodone 325-10 MG Tab PO PRN (12:55)
== END 2019-12-07 13:00 ==
LOC: DL.ED 19:27 → UNDOADMOB 20:15 → DL.MS 20:15 → UNDOADMOB 20:19 → DL.MS 20:19
PROVIDERS: ADMIT Internal Medicine; ATTEND Internal Medicine
DX: S72.324A Nondisplaced transverse fracture of shaft of right femur, initial encounter for closed fracture (principal); B37.2 Candidiasis of skin and nail; G35 Multiple sclerosis; L40.9 Psoriasis, unspecified; Z88.6 Allergy status to analgesic agent; X50.9XXA Other and unspecified overexertion or strenuous movements or postures, initial encounter
CPT/HCPCS: 36415; 73560; 80048; 85025; 96372; 96374; 96375; 96376; 99217; 99218; 99225; 99226; 99284; 99285; A9270; G0378; J1644; J2270; J2405

== ENCOUNTER 2023-06-25 15:29 | Inpatient (IN) | payer MEDICARE, MEDICAID ==
[2023-06-25] MEDS ORDERED: Albuterol/Ipratropium 3.0-0.5 MG/3 ML Neb Soln NEB ONE (15:50)
[2023-06-25] MEDS ORDERED: Dexamethasone/Tobramycin 0.1-0.3% Ophth Oint 3.5 GM Tube EYERT ONE (15:50)
[2023-06-25] MEDS ORDERED: Dexamethasone 4 MG/ML SDV IVPUSH ONE (15:51)
[2023-06-25] MEDS: Sodium Chloride 0.9% 10 ML Syringe FLUSH PRN (15:51)
[2023-06-25] MEDS ORDERED: Sodium Chloride 0.9% 1,000 ML IV ONE (15:51)
[2023-06-25] MEDS ORDERED: Cefepime 2 GM Vial IVPUSH ONE (15:52)
[2023-06-25] MEDS ORDERED: Azithromycin 500 MG in Sodium Chloride 0.9% 250 ML IV ONE (15:52)
[2023-06-25 16:12] LABS: BASOPHILS PERCENT AUTO 0.2 % (0.0-1.0); EOSINOPHILS PERCENT AUTO 0.3 % (1.0-3.0); HEMATOCRIT 40.6 % (40.0-54.0); HEMOGLOBIN 13.4 g/dL (14.0-18.0); LYMPHOCYTES PERCENT AUTO 15.2 % (20.5-50.1); MEAN CORPUSCULAR HEMOGLOBIN 27.9 pg (27.0-34.0); MEAN CORPUSCULAR VOLUME 84.4 fL (80-100); MONOCYTES PERCENT AUTO 6.9 % (2-8); NEUTROPHILS PERCENT AUTO 77.4 % (42.2-75.2); PLATELET COUNT,PLT 556 10^3/uL (150-450); RED BLOOD CELL COUNT 4.81 10^6/uL (4.6-6.2); WHITE BLOOD CELL COUNT,WBC 17.2 10^3/uL (5.0-10.0)
[2023-06-25 16:24] LABS: ALANINE AMINOTRANSFERASE,ALT 20 U/L (16-63); ALBUMIN 2.6 g/dL (3.4-5.0); ALKALINE PHOSPHATASE 79 U/L (46-116); ANION GAP 13.8 mEq/L (7-13); ASPARTATE AMNIOTRANSFERASE,AST 14 U/L (15-37); BILIRUBIN TOTAL 0.3 mg/dL (0.2-1.0); BLOOD UREA NITROGEN,BUN 20 mg/dL (7-18); BUN/CREATININE RATIO 24.1 (No establ ref range); CALCIUM 10.3 mg/dL (8.5-10.1); CARBON DIOXIDE,CO2 28 mmol/L (21-32); CHLORIDE,CL 99 mmol/L (98-107); CREATININE 0.83 mg/dL (0.70-1.30); GLUCOSE RANDOM 141 mg/dL (70-99); POTASSIUM,K 3.8 mmol/L (3.5-5.1); PROTEIN TOTAL,TP 8.3 g/dL (6.4-8.2); SODIUM,NA 137 mmol/L (136-145)
[2023-06-25] MEDS ORDERED: Gentamicin 0.3% Ophth Soln 5 ML Bottle EYERT ONE (16:24)
[2023-06-25 16:25] LABS: A/G RATIO 0.46; ESTIMATED GFR 96 mL/min (>=60)
[2023-06-25 16:27] LABS: LACTIC ACID 1.6 mmol/L (0.4-2.0)
[2023-06-25 16:40] LABS: B-TYPE NATRIURETIC PEPTIDE,BNP 15 pg/ml (0-100)
[2023-06-25 16:45] LABS: INFLUENZA A NAA NEGATIVE (NEGATIVE); INFLUENZA B NAA NEGATIVE (NEGATIVE); RESPIRATORY SYNCYTIAL VIR NAA NEGATIVE (NEGATIVE)
[2023-06-25 16:46] LABS: CORONAVIRUS COVID-19 NAA POSITIVE (NEGATIVE)
[2023-06-25] MEDS ORDERED: Acetaminophen/HYDROcodone 325-5 MG Tab PO PRN (17:23)
[2023-06-25] MEDS ORDERED: Magnesium Hydroxide 400 MG/5 ML Susp 30 ML Cup PO PRN ×2 (17:23→18:19)
[2023-06-25] MEDS ORDERED: Ondansetron 4 MG/2 ML SDV IVPUSH PRN (17:23)
[2023-06-25] MEDS ORDERED: Polyethylene Glycol 3350 Powder 17 GM Packet PO PRN (17:23)
[2023-06-25] MEDS ORDERED: Docusate Sodium 100 MG Cap PO PRN (17:23)
[2023-06-25] MEDS ORDERED: Sennosides/Docusate Sodium 50-8.6 MG Tab PO PRN (17:23)
[2023-06-25] MEDS ORDERED: levETIRAcetam in NaCl (iso-os) 100 ML ONE (17:26)
[2023-06-25] MEDS ORDERED: Sodium Chloride 0.9% 1,000 ML IV SCH (17:30)
[2023-06-25] MEDS ORDERED: 50% Dextrose in Water 50 ML Syringe IVPUSH PRN (17:35)
[2023-06-25] MEDS ORDERED: Glucagon,Human Recombinant 1 MG Vial IM PRN (17:35)
[2023-06-25] MEDS: Insulin Lispro 100 Units/ML 3 ML Vial SUBCUT SCH ×2 (18:17→21:38)
[2023-06-25] MEDS ORDERED: Loperamide 2 MG Cap PO PRN (18:19)
[2023-06-25] MEDS ORDERED: LACTOSE REDUCED FOOD PO PRN (18:19)
[2023-06-25] MEDS: Albuterol/Ipratropium 3.0-0.5 MG/3 ML Neb Soln NEB SCH ×2 (18:38→22:37)
[2023-06-25] MEDS: Gentamicin 0.3% Ophth Soln 5 ML Bottle EYEBOTH SCH (21:33)
[2023-06-25] MEDS: metFORMIN 500 MG Tab PO SCH (21:35)
[2023-06-25] MEDS: Melatonin 3 MG Tab PO PRN (21:35)
[2023-06-25] MEDS: Baclofen 10 MG Tab PO SCH (21:36)
[2023-06-25] MEDS: Acetaminophen 325 MG Tab PO PRN (21:36)
[2023-06-26] MEDS: Albuterol/Ipratropium 3.0-0.5 MG/3 ML Neb Soln NEB SCH ×6 (02:35→22:49)
[2023-06-26 06:13] LABS: HEMATOCRIT 35.6 % (40.0-54.0); HEMOGLOBIN 11.6 g/dL (14.0-18.0); MEAN CORPUSCULAR HGB CONC 32.6 g/dL (33.0-35.0); PLATELET COUNT,PLT 444 10^3/uL (150-450); RED BLOOD CELL COUNT 4.14 10^6/uL (4.6-6.2); WHITE BLOOD CELL COUNT,WBC 18.6 10^3/uL (5.0-10.0)
[2023-06-26 06:22] LABS: BASOPHILS PERCENT AUTO 0.1 % (0.0-1.0); LYMPHOCYTES PERCENT AUTO 6.5 % (20.5-50.1); MONOCYTES PERCENT AUTO 1.7 % (2-8); NEUTROPHILS PERCENT AUTO 91.7 % (42.2-75.2)
[2023-06-26 06:35] LABS: LYMPHOCYTES PERCENT MAN 4 % (20-50); MONOCYTES PERCENT MAN 2 % (2-8); SEG NEUTROPHILS PERCENT MAN 94 % (42-75)
[2023-06-26 06:38] LABS: ALBUMIN 2.3 g/dL (3.4-5.0); BILIRUBIN TOTAL 0.2 mg/dL (0.2-1.0); CALCIUM 9.4 mg/dL (8.5-10.1); EST CRCL DRUG DOSING (CG) 86.64 mL/min; PROTEIN TOTAL,TP 7.4 g/dL (6.4-8.2)
[2023-06-26 06:39] LABS: A/G RATIO 0.45
[2023-06-26] MEDS: Dexamethasone 4 MG/ML SDV IVPUSH SCH (07:43)
[2023-06-26] MEDS: Cefepime 2 GM Vial IVPUSH SCH (08:15)
[2023-06-26] MEDS: Enoxaparin 40 MG/0.4 ML Syringe SUBCUT SCH (08:15)
[2023-06-26] MEDS: Sennosides/Docusate Sodium 50-8.6 MG Tab PO SCH (08:16)
[2023-06-26] MEDS: metFORMIN 500 MG Tab PO SCH ×2 (08:16→20:25)
[2023-06-26] MEDS: Baclofen 10 MG Tab PO SCH ×2 (08:16→20:24)
[2023-06-26] MEDS: Insulin Lispro 100 Units/ML 3 ML Vial SUBCUT SCH ×4 (08:17→20:25)
[2023-06-26] MEDS: Multivitamins with Iron/Calcium/Folic Acid/Minerals Tab PO SCH (08:17)
[2023-06-26] MEDS: Calcium Polycarbophil 625 MG Tab PO SCH (08:17)
[2023-06-26] MEDS: Azithromycin 250 MG Tab PO SCH (08:17)
[2023-06-26] MEDS: Gentamicin 0.3% Ophth Soln 5 ML Bottle EYEBOTH SCH ×4 (08:18→20:23)
[2023-06-26] MEDS: REMDESIVIR 100 MG in Sodium Chloride 0.9% 100 ML IV SCH (18:04)
[2023-06-26] MEDS: Melatonin 3 MG Tab PO PRN (20:24)
[2023-06-26] MEDS: Acetaminophen 325 MG Tab PO PRN (20:25)
[2023-06-26] MEDS: APREMILAST 30 MG PO SCH ×3 (20:40→23:38)
[2023-06-27] MEDS: Albuterol/Ipratropium 3.0-0.5 MG/3 ML Neb Soln NEB SCH ×4 (02:46→17:13)
[2023-06-27] MEDS: Dexamethasone 4 MG/ML SDV IVPUSH SCH (06:05)
[2023-06-27 06:50] LABS: BASOPHILS PERCENT AUTO 0.1 % (0.0-1.0); HEMATOCRIT 35.5 % (40.0-54.0); HEMOGLOBIN 11.4 g/dL (14.0-18.0); LYMPHOCYTES PERCENT AUTO 16.1 % (20.5-50.1); MEAN CORPUSCULAR HEMOGLOBIN 27.7 pg (27.0-34.0); MEAN CORPUSCULAR HGB CONC 32.1 g/dL (33.0-35.0); MEAN CORPUSCULAR VOLUME 86.4 fL (80-100); NEUTROPHILS PERCENT AUTO 75.8 % (42.2-75.2); PLATELET COUNT,PLT 516 10^3/uL (150-450); RED BLOOD CELL COUNT 4.11 10^6/uL (4.6-6.2); WHITE BLOOD CELL COUNT,WBC 13.2 10^3/uL (5.0-10.0)
[2023-06-27 07:05] LABS: ALBUMIN 2.3 g/dL (3.4-5.0); ANION GAP 14.4 mEq/L (7-13); BILIRUBIN TOTAL 0.2 mg/dL (0.2-1.0); BUN/CREATININE RATIO 34.2 (No establ ref range); CREATININE 0.79 mg/dL (0.70-1.30); EST CRCL DRUG DOSING (CG) 109.68 mL/min; POTASSIUM,K 3.4 mmol/L (3.5-5.1); PROTEIN TOTAL,TP 7.2 g/dL (6.4-8.2)
[2023-06-27 07:09] LABS: A/G RATIO 0.47
[2023-06-27] MEDS ORDERED: Potassium Chloride 10 MEQ Tab.ER PO ONE (08:15)
[2023-06-27] MEDS: Insulin Lispro 100 Units/ML 3 ML Vial SUBCUT SCH ×4 (08:16→22:21)
[2023-06-27] MEDS: Multivitamins with Iron/Calcium/Folic Acid/Minerals Tab PO SCH (10:30)
[2023-06-27] MEDS: Enoxaparin 40 MG/0.4 ML Syringe SUBCUT SCH (10:34)
[2023-06-27] MEDS: metFORMIN 500 MG Tab PO SCH ×2 (10:35→20:46)
[2023-06-27] MEDS: Baclofen 10 MG Tab PO SCH ×2 (10:38→20:46)
[2023-06-27] MEDS: Azithromycin 250 MG Tab PO SCH (10:39)
[2023-06-27] MEDS: Calcium Polycarbophil 625 MG Tab PO SCH (10:40)
[2023-06-27] MEDS: Sennosides/Docusate Sodium 50-8.6 MG Tab PO SCH (10:40)
[2023-06-27] MEDS: Cefepime 2 GM Vial IVPUSH SCH (10:43)
[2023-06-27] MEDS: Gentamicin 0.3% Ophth Soln 5 ML Bottle EYEBOTH SCH ×4 (10:43→20:45)
[2023-06-27] MEDS: Sodium Chloride 0.9% 10 ML Syringe FLUSH PRN (10:51)
[2023-06-27] MEDS: APREMILAST 30 MG PO SCH ×2 (11:02→20:48)
[2023-06-27] MEDS: REMDESIVIR 100 MG in Sodium Chloride 0.9% 100 ML IV SCH (16:56)
[2023-06-27] MEDS: Melatonin 3 MG Tab PO PRN (20:46)
[2023-06-27] MEDS: Acetaminophen 325 MG Tab PO PRN (20:47)
[2023-06-28] MEDS: Albuterol/Ipratropium 3.0-0.5 MG/3 ML Neb Soln NEB SCH ×2 (00:35→05:40)
[2023-06-28 06:32] LABS: HEMATOCRIT 35.7 % (40.0-54.0); HEMOGLOBIN 11.7 g/dL (14.0-18.0); MEAN CORPUSCULAR HEMOGLOBIN 27.7 pg (27.0-34.0); MEAN CORPUSCULAR HGB CONC 32.8 g/dL (33.0-35.0); MEAN CORPUSCULAR VOLUME 84.6 fL (80-100); PLATELET COUNT,PLT 483 10^3/uL (150-450); RED BLOOD CELL COUNT 4.22 10^6/uL (4.6-6.2)
[2023-06-28 06:36] LABS: LYMPHOCYTES PERCENT AUTO 20.8 % (20.5-50.1); NEUTROPHILS PERCENT AUTO 70.7 % (42.2-75.2)
[2023-06-28 06:37] LABS: BASOPHILS PERCENT AUTO 0.1 % (0.0-1.0); EOSINOPHILS PERCENT AUTO 0.3 % (1.0-3.0); MONOCYTES PERCENT AUTO 8.1 % (2-8)
[2023-06-28 06:54] LABS: ALBUMIN 2.3 g/dL (3.4-5.0); ANION GAP 12.7 mEq/L (7-13); BILIRUBIN TOTAL 0.3 mg/dL (0.2-1.0); BUN/CREATININE RATIO 32.6 (No establ ref range); CALCIUM 8.8 mg/dL (8.5-10.1); CREATININE 0.92 mg/dL (0.70-1.30); EST CRCL DRUG DOSING (CG) 94.18 mL/min; POTASSIUM,K 3.7 mmol/L (3.5-5.1); PROTEIN TOTAL,TP 6.9 g/dL (6.4-8.2)
[2023-06-28 06:56] LABS: A/G RATIO 0.5
[2023-06-28 07:21] LABS: BAND PERCENT MAN 4 %; LYMPHOCYTES PERCENT MAN 17 % (20-50); MONOCYTES PERCENT MAN 6 % (2-8); SEG NEUTROPHILS PERCENT MAN 73 % (42-75)
[2023-06-28] MEDS: Dexamethasone 4 MG/ML SDV IVPUSH SCH (07:41)
[2023-06-28] MEDS: Insulin Lispro 100 Units/ML 3 ML Vial SUBCUT SCH (08:31)
[2023-06-28] MEDS: Multivitamins with Iron/Calcium/Folic Acid/Minerals Tab PO SCH (08:42)
[2023-06-28] MEDS: metFORMIN 500 MG Tab PO SCH (08:43)
[2023-06-28] MEDS: Calcium Polycarbophil 625 MG Tab PO SCH (08:43)
[2023-06-28] MEDS: Sennosides/Docusate Sodium 50-8.6 MG Tab PO SCH (08:43)
[2023-06-28] MEDS: Baclofen 10 MG Tab PO SCH (08:45)
[2023-06-28] MEDS: Azithromycin 250 MG Tab PO SCH (08:45)
[2023-06-28] MEDS: Enoxaparin 40 MG/0.4 ML Syringe SUBCUT SCH (08:46)
[2023-06-28] MEDS: Cefepime 2 GM Vial IVPUSH SCH (08:47)
[2023-06-28] MEDS: Gentamicin 0.3% Ophth Soln 5 ML Bottle EYEBOTH SCH (09:03)
[2023-06-28] MEDS: APREMILAST 30 MG PO SCH (09:03)
[2023-06-28 10:37] VITALS: BP 118/72; PULSE 90
== END 2023-06-28 10:35 | DRG 871 ==
LOC: DL.ED 15:29 → DL.MS 16:47
PROVIDERS: ADMIT Internal Medicine; ATTEND Internal Medicine
PROC: 3E0333Z Introduction of Anti-inflammatory into Peripheral Vein, Percutaneous Approach (ICD-10-PCS; principal; 2023-06-25)
PROC: XW033E5 Introduction of Remdesivir Anti-infective into Peripheral Vein, Percutaneous Approach, New Technology Group 5 (ICD-10-PCS; 2023-06-26)
DX: A41.89 Other specified sepsis (principal); J18.9 Pneumonia, unspecified organism; J96.01 Acute respiratory failure with hypoxia; J12.82 Pneumonia due to coronavirus disease 2019; U07.1 COVID-19; R65.20 Severe sepsis without septic shock; A41.9 Sepsis, unspecified organism; U09.9 Post COVID-19 condition, unspecified; E86.0 Dehydration; Z74.01 Bed confinement status; Z88.6 Allergy status to analgesic agent; Z88.8 Allergy status to other drugs, medicaments and biological substances; Z79.899 Other long term (current) drug therapy; H10.31 Unspecified acute conjunctivitis, right eye; G35 Multiple sclerosis; E11.9 Type 2 diabetes mellitus without complications; Z66 Do not resuscitate
CPT/HCPCS: 0241U; 36415; 71045; 80053; 82947; 83605; 83880; 84145; 85025; 87040; 94010; 94060; 94640; 94667; 94668; 94762; 96365; 96375; 99223; 99233; 99239; 99285; 99285-25; A9270-GY; J0248; J0456; J0692; J1100; J1650; J1815-GY; J3490; J7030; J7050; J7620-GY

== ENCOUNTER 2025-05-06 12:37 | Emergency (ER) | payer MEDICAID, MEDICARE ==
[2025-05-06 16:16] VITALS: BP 121/78; PULSE 92
== END 2025-05-06 16:16 | disposition home or self-care (01) ==
LOC: DL.ED 12:37
DX: S91.115A Laceration without foreign body of left lesser toe(s) without damage to nail, initial encounter (principal); E11.9 Type 2 diabetes mellitus without complications; Z88.6 Allergy status to analgesic agent; Z88.8 Allergy status to other drugs, medicaments and biological substances; Z79.899 Other long term (current) drug therapy; Z79.51 Long term (current) use of inhaled steroids; Z79.84 Long term (current) use of oral hypoglycemic drugs; W22.8XXA Striking against or struck by other objects, initial encounter; Y93.89 Activity, other specified
CPT/HCPCS: 73630-LT; 99283